=== PATIENT | female | born 1980 | race Two or more races ===

== ENCOUNTER → 2017-03-29 | Outpatient (CLI) | payer BC ==
--- NOTE | ~2017-03-29 | EE ---
Unit #: [id number] #: [id number] Patient: SHAHNAZ YEE [id number] [address] [id number] O MR#: [id number] NAME: SHAHNAZ YEE : 1980 SEX: F STUDY DATE/TIME: 03/29/2017 UNIT: CEEG ROOM: STUDY DESCRIPTION: EEG Attending Physician: Richmond Cadena II., M.D. Referring Physician: Richmond Cadena II., M.D. Primary Care Physician: No Primary Care Physician NEURODIAGNOSTICS REPORT EXAM EEG. TECH Luana. REASON FOR STUDY Seizures. TECHNICAL INFORMATION This is a routine EEG performed using the standard international 10-20 system of electrode placement. Photic stimulation was performed. Hyperventilation was also performed. REPORT Throughout the entire study, the best background rhythm seen is approximately 11 to 12 Hz. This rhythm is seen in both posterior head regions symmetrically and does attenuate to eye opening and closure. Hyperventilation was performed, which did not cause any abnormal buildup. Photic stimulation was also performed, which caused significant photic driving; however, no epileptiform abnormalities were generated from photic stimulation. Throughout the entire study there were no electrographic seizures recorded, nor were there any independent epileptiform abnormalities seen. No sleep was recorded during the EEG. INTERPRETATION This is a normal awake EEG. A normal EEG does not rule out the possibility of a seizure disorder. Clinical correlation is advised. Dictated by... Richmond Cadena II., M.D. GWS/aixa TD: 04/01/2017 12:45 JOB #: [id number] Unit #: [id number] #: [id number] Patient: SHAHNAZ YEE NEURODIAGNOSTICS REPORT Page 1 of 1 X NEURODIAGNOSTICS REPORT
== END | disposition home or self-care (01) ==
LOC: CEEG 08:49
DX: G40.909 Epilepsy, unspecified, not intractable, without status epilepticus (principal)
CPT/HCPCS: 95816